=== PATIENT | female | born 1950 | race Caucasian/White ===

== ENCOUNTER 2018-06-22 07:05 | Day surgery (SDC) | payer MEDICARE, OTHER ==
[~2018-06-22] VITALS: Ht 167.6 cm; Wt 73.9 kg
[~2018-06-22 07:05] MED LIST: ACET325T16 PO; ASPI81TA59 PO; CHOL100013 PO; CYCL10TA2 PO; GABA600T PO; OXYC5TAB4 PO; POLY17PO29 PO
[2018-06-22] MEDS ORDERED: SENN-80 PO (07:12)
[2018-06-22] MEDS ORDERED: TRAM50TA PO (07:12)
[2018-06-22] MEDS ORDERED: CYCL10TA2 PO (07:12)
[2018-06-22] MEDS ORDERED: IV RINGERS,LACTATED 1000ML 1,000 ML IV SCH (07:33)
[2018-06-22] MEDS ORDERED: HYDROmorphone 2 MG/ML VIAL IV PRN (07:45)
[2018-06-22] MEDS ORDERED: ONDANSETRON PF 4 MG/2 ML VIAL. IV PRN (07:45)
[2018-06-22] MEDS ORDERED: fentaNYL PF VIAL 100 MCG/2 ML VIAL IV PRN (07:45)
[2018-06-22] MEDS ORDERED: MORPHINE SULFATE 2 MG/ML VIAL. IV PRN (07:45)
[2018-06-22] MEDS ORDERED: PROCHLORPERAZINE 10 MG/2 ML VIAL. IV PRN (07:45)
[2018-06-22] MEDS ORDERED: LIDOCAINE 1% PF 2 ML VIAL. ID PRN (07:45)
[2018-06-22] MEDS ORDERED: DEXAMETHASONE SOD PHOS 20 MG/5 ML VIAL. ONE (08:07)
[2018-06-22] MEDS ORDERED: SEVOFLURANE 61 TO 120 MINUTES. IH ONE (08:07)
[2018-06-22] MEDS ORDERED: DESFLURANE 31 TO 60 MINUTES IH ONE (08:07)
[2018-06-22] MEDS ORDERED: ONDANSETRON PF 4 MG/2 ML VIAL. ONE (08:07)
[2018-06-22] MEDS ORDERED: PROPOFOL 20 ML IV ONE (08:07)
[2018-06-22] MEDS ORDERED: LIDOCAINE 2% PF 5 ML VIAL. ONE (08:07)
[2018-06-22] MEDS ORDERED: fentaNYL PF VIAL 100 MCG/2 ML VIAL ONE ×2 (08:08→11:04)
--- NOTE | 2018-06-22 08:12 | DISCH ---
DISCHARGE INSTRUCTIONS Condition on Discharge Condition on Discharge: Stable Activity After Discharge Activity Instructions for Disc: Activity as tolerated Bathing Instructions: No Tub Bath until see Exercise Instruction after Dis: Exercise per therapy Weight Bearing Status after Di: As tolerated Diet after Discharge Diet after Discharge: Regular Wound Incision Care Wound/Incision Care: Change dressing (May remove dressing in 2 days may then shower no soaking until sutures removed) Contacting the DRElda after DC Call your doctor for: Concerns you may have Follow-Up Follow up with: Nick 1 week RENETTA GONZALEZ MD Jun 22, 2018 08:12
[2018-06-22] MEDS ORDERED: HYDR-3164 PO (08:14)
[2018-06-22] MEDS ORDERED: KETOROLAC 30 MG/ML INJ FOR OR. INJ ONE (10:32)
[2018-06-22] MEDS ORDERED: BUPIVACAINE MPF 0.5% 30 ML VIAL. ONE (10:47)
[2018-06-22] MEDS: fentaNYL PF VIAL 100 MCG/2 ML VIAL IV PRN ×2 (11:05→11:10)
--- NOTE | 2018-06-22 11:10 | PDOC4 ---
Operative Note Operative Note Date of surgery: 06/22/2018 Preoperative diagnosis: Symptomatic hardware status post previous tibial nail fixation Postoperative diagnosis: Same with likely some fat necrosis at the area of the superior screw Operative procedure: Removal locking screws �3 left leg Surgeon: Nick Anesthesia: Gen. LMA Estimated blood loss: 2 mL Complications: None Specimens: Cultures of proximal screw area sent intraoperatively Operative indications: Anna is a 67-year-old female who underwent previous tibial fixation and remains very active the fracture healed without incident however once her swelling went down she appears to have significant prominence of 3 of the 4 tibial nail locking screws. 2 on the distal medial ankle and 1 on the medial tibial crest area. I had gone over with her the fact that the hardware has outlived its usefulness at present and we could remove them if symptomatic. I do not recommend removal of the nail wasn't Symptomatic Hardware at This Time. I Anticipate Minimal Restrictions from Her Afterword in Terms of Activity Other Than the Incision Itself Healing. All Her Questions Were Answered She Wishes to Proceed with Surgical Evaluation and Treatment. Operative Text: Patient Was Identified Procedure Verified Patient Placed in the Supine Position on the Operating Table. After Adequate Amounts of General LMA Anesthesia Were Administered the Left Lower Extremity Was Prepped and Draped in Standard Sterile Fashion and after Timeout Was Performed Patient Procedure Identified and Verified and Incision Was Made over the Previous Insertion Site of the Proximal Medial Locking Screw. Some Cloudy Appearing Fluid Was Obtained and Cultured As I Expect It Was Probably Fat Necrosis Given Any Lack of Redness or Other Communication However in the Affected May Be a Small Pocket of Pus Was Sent for Intraoperative Culture. Screw Was Removed without Incident There Was No Further Drainage from the Bone Other Than Just Slight Expected Bloody Drainage. The 2 Distal Medial Screws Were Similarly Removed and No Fluid Accumulation Was Observed around the Distal Screws Which Were Removed without Incident Thorough Irrigation Was Carried out at All 3 Removal Sites Closure Accomplished with Nylon Suture and a Mattress Fashion Sterile Dressings Were Applied after a Total of 10 ML of Half Percent Plain Marcaine Were Injected around the Skin Incisions Jose Alberto Wrap Was Placed Patient Was Returned to Recovery Room in Stable Condition Having Tolerated Procedure Well RENETTA GONZALEZ MD Jun 22, 2018 11:10
[2018-06-22] MEDS ORDERED: HYDROcodone/APAP 5/325MG 1 TAB TABLET PO ONE (11:15)
[2018-06-22 12:10] VITALS: BP 144/58
== END 2018-06-22 12:10 | disposition home or self-care (01) ==
LOC: SURG 07:05
PROVIDERS: ATTEND Orthopaedic Surgery
DX: T84.84XA Pain due to internal orthopedic prosthetic devices, implants and grafts, initial encounter (principal); F32.9 Major depressive disorder, single episode, unspecified; Z98.890 Other specified postprocedural states; F17.210 Nicotine dependence, cigarettes, uncomplicated; Z72.89 Other problems related to lifestyle; Z79.899 Other long term (current) drug therapy; Z79.82 Long term (current) use of aspirin; G89.18 Other acute postprocedural pain; Y83.1 Surgical operation with implant of artificial internal device as the cause of abnormal reaction of the patient, or of later complication, without mention of misadventure at the time of the procedure; Y92.89 Other specified places as the place of occurrence of the external cause
CPT/HCPCS: 20680; 87071; 87075; A7015; J0690; J1100; J1885; J2001; J2405; J2704; J3010; J3490; J0696

== ENCOUNTER → 2018-08-02 | Outpatient (CLI) | payer MEDICARE ==
[~2018-08-02] MED LIST changes: +HYDR-3164 PO; +HYDR-3165 PO; +SENN-80 PO; +TRAM50TA PO
[2018-08-02 15:17] LABS: BASO # 0.1 x10^3/uL (0.0-0.2); BASO % 1 % (0-3); EOS # 0.2 x10^3/uL (0.0-0.7); EOS % 2 % (0-3); HEMATOCRIT 39.7 % (36.0-47.0); HEMOGLOBIN 13.3 g/dL (12.0-15.5); LYMPH # 3.4 x10^3/uL (1.0-4.8); LYMPH % 36 % (24-48); MEAN CORPUSCULAR HEMOGLOBIN 31 pg (25-35); MEAN CORPUSCULAR HGB CONC 34 g/dL (31-37); MEAN CORPUSCULAR VOLUME 93 fL (79-100); MONO # 1.2 x10^3/uL (0.0-1.1); MONO % 13 % (0-9); NEUT # 4.4 x10^3uL (1.8-7.7); NEUT % 48 % (31-73); PLATELET COUNT 258 x10^3/uL (140-400); RED BLOOD COUNT 4.26 x10^6/uL (3.50-5.40); RED CELL DISTRIBUTION WIDTH 12.8 % (11.5-14.5); WHITE BLOOD COUNT 9.3 x10^3/uL (4.0-11.0)
== END | disposition home or self-care (01) ==
LOC: LAB 14:53
PROVIDERS: ATTEND Orthopaedic Surgery
DX: S82.202D Unspecified fracture of shaft of left tibia, subsequent encounter for closed fracture with routine healing (principal); Z79.899 Other long term (current) drug therapy; X58.XXXD Exposure to other specified factors, subsequent encounter
CPT/HCPCS: 36415; 85025; 85651; 86140

== ENCOUNTER 2018-08-17 07:19 | Inpatient (IN) | payer MEDICARE ==
[~2018-08-17] VITALS: Ht 167.6 cm; Wt 69.2 kg
[~2018-08-17 07:19] MED LIST changes: -HYDR-3165 PO; +IV RINGERS,LACTATED 1000ML 1,000 ML IV SCH; +LIDOCAINE 1% PF 2 ML VIAL. ID PRN; +ONDANSETRON PF 4 MG/2 ML VIAL. IV PRN; +PROCHLORPERAZINE 10 MG/2 ML VIAL. IV PRN; +fentaNYL PF VIAL 100 MCG/2 ML VIAL IV PRN
[2018-08-17] MEDS ORDERED: DEXAMETHASONE SOD PHOS 20 MG/5 ML VIAL. ONE (08:49)
[2018-08-17] MEDS ORDERED: LIDOCAINE 2% PF 5 ML VIAL. ONE (08:49)
[2018-08-17] MEDS ORDERED: PROPOFOL 20 ML IV ONE (08:49)
[2018-08-17] MEDS ORDERED: ONDANSETRON PF 4 MG/2 ML VIAL. ONE (08:49)
[2018-08-17] MEDS ORDERED: MIDAZOLAM HCL/PF 2 MG/2 ML VIAL. ONE (08:50)
[2018-08-17] MEDS ORDERED: fentaNYL PF VIAL 100 MCG/2 ML VIAL ONE ×2 (08:51→10:53)
[2018-08-17] MEDS ORDERED: ePHEDrine PF IN SALINE 50 MG/10 ML SYRINGE. IV ONE (09:42)
[2018-08-17] MEDS ORDERED: SEVOFLURANE 31 TO 60 MINUTES. IH ONE (10:05)
[2018-08-17] MEDS: fentaNYL PF VIAL 100 MCG/2 ML VIAL IV PRN ×4 (10:55→11:30)
[2018-08-17] MEDS ORDERED: HYDR-3165 PO (10:57)
--- NOTE | 2018-08-17 10:58 | DISCH ---
DISCHARGE INSTRUCTIONS Condition on Discharge Condition on Discharge: Stable Activity After Discharge Activity Instructions for Disc: Activity as tolerated Bathing Instructions: Shower-keep dressing dry Weight Bearing Status after Di: As tolerated Diet after Discharge Diet after Discharge: Regular Wound Incision Care Wound/Incision Care: Change dressing (May remove dressing in 3 days may then shower no soaking until sutures removed at follow-up visit) Contacting the after DC Call your doctor for: Concerns you may have Follow-Up Follow up with: Dr. Romero 2 weeks RENETTA ROMERO MD Aug 17, 2018 10:58
[2018-08-17] MEDS: MORPHINE SULFATE 2 MG/ML VIAL. IV PRN ×4 (11:05→13:59)
[2018-08-17] MEDS ORDERED: HYDROcodone/APAP 7.5/325MG 1 TAB TABLET PO ONE (11:15)
[2018-08-17] MEDS ORDERED: HYDROmorphone 2 MG/ML VIAL ONE (11:43)
[2018-08-17] MEDS ORDERED: MORPHINE SULFATE 2 MG/ML VIAL. ONE (11:43)
[2018-08-17] MEDS: HYDROmorphone 2 MG/ML VIAL IV PRN ×4 (11:46→13:04)
--- NOTE | 2018-08-17 12:52 | RAD ---
Left tibia and fibula, 2 views, 08/17/2018: HISTORY: Postop bleeding Comparison is made to a study from 09/01/2016. The intramedullary shira and associated screws have been removed.There is deformity of the proximal fibular shaft compatible with an old healed fracture. There is a chronic bony defect along the medial margin of the distal tibia containing a bony fragment which appears to be incompletely healed with sclerotic margins. No new fracture or destructive bony lesion is seen. IMPRESSION: 1. Interval removal of tibial fixation hardware since 09/01/2016 and 05/24/2018. 2. Old distal tibial and proximal fibular fractures. Electronically signed by: Salinas Burns MD (08/17/2018 12:49 PM) [facility]
[2018-08-17] MEDS ORDERED: MORPHINE SULFATE 2 MG/ML VIAL. IV PRN (14:00)
[2018-08-17] MEDS ORDERED: ONDANSETRON PF 4 MG/2 ML VIAL. IV PRN (14:00)
[2018-08-17] MEDS ORDERED: DEXTROSE 50% 25 GM / 50ML DISP.SYRIN. IV PRN (14:00)
[2018-08-17] MEDS ORDERED: fentaNYL PF VIAL 100 MCG/2 ML VIAL IV PRN (14:00)
[2018-08-17] MEDS ORDERED: POLYETHYLENE GLYCOL 3350 17 GM PACKET. PO PRN (14:00)
[2018-08-17 15:00] VITALS: BP 143/63
[2018-08-17] MEDS: SENNOSIDES/DOCUSATE 8.6/50MG TABLET. PO SCH (15:11)
[2018-08-17] MEDS: ceFAZolin SODIUM 1 GM in IV DEXTROSE 5% 50 ML IV SCH ×2 (15:13→20:29)
[2018-08-17] MEDS: MORPHINE SULFATE 4 MG/ML VIAL. IV PRN ×3 (15:19→20:30)
--- NOTE | 2018-08-17 16:22 | PDOC4 ---
Operative Note Operative Note Date of surgery: 08/17/2018 Preoperative diagnosis: Retained hardware left tibia with persistent drainage following distal locking screw removal, suspected occult infection Postoperative diagnosis: Same Operative procedure: Removal proximal locking screw and tibial nail with irrigation debridement and cultures Surgeon: Nick Anesthesia: Gen. Estimated blood loss: 75 mL Complications: None Cultures: Swabs 2 were taken down the medullary canal and at the rock small locking screw location and tissue samples taken from the locking screws in the tibial nail and sent for intraoperative Gram stain aerobic anaerobic and acid- fast and fungal cultures Operative indications: Anna is a very active 67-year-old female who had undergone previous fixation of a tibial shaft fracture with an intramedullary nail. The fracture appeared to heal without incident however she began with activity to have some pain particularly over the distal locking screws and prominence of the hardware. She underwent removal of a total of 3 prominent locking screws with the tibial nail retained but continued to have some discomfort in actually some persistent drainage from the distal locking screw incision sites. Blood work was initially obtained but showed very little increase in her inflammatory markers but she continued to have some persistent serous drainage. I discussed at length with her the treatment options and was concerned with the possibility of low-grade occult infection that could potentially be harbored by the tibial nail and given that it is already outlived its usefulness in terms of the stabilization of the healing fracture and could potentially serve as a hiding place for bacteria next to the nail that may be causing her symptoms had discussed the possibility of removal versus longer term antibiotics which could potentially improve her situation but would make it difficult to obtain a diagnosis intraoperatively with cultures if that were later chosen. She wishes to proceed with surgical removal of the nail given the alternatives all her questions were answered. Operative text: Patient was identified procedure verified patient placed in the supine position on the operating table. After adequate amounts of general anesthesia were administered the left lower coming was prepped and draped in standard sterile fashion. After timeout was performed patient procedure identified and verified her thigh tourniquet was inflated to 250 mm mercury and an incision was carried out over the medial aspect of the patellar tendon. A guidewire was placed to localize the threaded insertion portion of the tibial nail and an entry reamer used to open up the area to allow placement of an extraction device which was threaded into the proximal portion of the nail. The lateral proximal locking screw was removed and the contents of the screw threads were cultured and a aerobic and anaerobic swab. The nail was removed with little difficulty and tissue samples were sent for culture intraoperatively in the locking screw holes and an additional swab was sent after swabbing intramedullary contents. Thorough irrigation was then carried out with a total of 3 L of pulse lavage normal saline solution and flushing was carried out anterograde and retrograde after brushing the canal with a sterile brush used to prepare for cemented arthroplasty. Some bleeding was experienced after this procedure but was thought necessary to achieve adequate intramedullary debridement. Additional thorough irrigation carried out normal saline solution pulse lavage closure accomplished with buried 2-0 PDS suture skin closure with 3-0 nylon in a vertical mattress fashion sterile dressings and an Jose Alberto wrap were applied toes were noted be warm pink find deflation of tourniquet patient was returned recovery room having tolerated the procedure well and was in stable condition. Postoperatively she experienced some bleeding particularly from the small locking screw incision site and the area was redressed but due to her bleeding and significant amounts of difficulty controlling postoperative pain she was admitted postoperatively and infectious disease consultation obtained RENETTA GONZALEZ MD Aug 17, 2018 16:22
[2018-08-17 19:00] VITALS: BP 138/66
[2018-08-17 23:00] VITALS: BP 152/66
[2018-08-18] MEDS: MORPHINE SULFATE 4 MG/ML VIAL. IV PRN ×3 (01:07→17:10)
[2018-08-18] MEDS: ceFAZolin SODIUM 1 GM in IV DEXTROSE 5% 50 ML IV SCH (02:15)
[2018-08-18] MEDS: oxyCODONE IR 5 MG TABLET PO PRN ×2 (02:20→08:27)
[2018-08-18 03:00] VITALS: BP 143/64
[2018-08-18] MEDS ORDERED: MAGNESIUM HYDROXIDE 2,400 MG/30 ML ORAL.SUSP. PO PRN (06:00)
[2018-08-18] MEDS: HYDROcodone/APAP 7.5/325MG 1 TAB TABLET PO PRN ×4 (06:11→23:16)
[2018-08-18 07:00] VITALS: BP 106/60
[2018-08-18] MEDS: SENNOSIDES/DOCUSATE 8.6/50MG TABLET. PO SCH (08:24)
[2018-08-18] MEDS: PIPERACILLIN/TAZOBACTAM 3.375 GM in IV NORMAL SALINE 50ML 50 ML IV SCH ×4 (08:27→23:15)
[2018-08-18 08:53] LABS: BASO # 0.1 x10^3/uL (0.0-0.2); BASO % 0 % (0-3); EOS % 0 % (0-3); HEMATOCRIT 37.2 % (36.0-47.0); HEMOGLOBIN 12.4 g/dL (12.0-15.5); LYMPH % 20 % (24-48); MEAN CORPUSCULAR HEMOGLOBIN 31 pg (25-35); MEAN CORPUSCULAR HGB CONC 33 g/dL (31-37); MEAN CORPUSCULAR VOLUME 94 fL (79-100); MONO # 1.6 x10^3/uL (0.0-1.1); MONO % 11 % (0-9); NEUT % 68 % (31-73); PLATELET COUNT 243 x10^3/uL (140-400); RED BLOOD COUNT 3.95 x10^6/uL (3.50-5.40); RED CELL DISTRIBUTION WIDTH 12.9 % (11.5-14.5); WHITE BLOOD COUNT 14.7 x10^3/uL (4.0-11.0)
[2018-08-18 09:13] LABS: ALBUMIN 3.6 g/dL (3.4-5.0); CALCIUM 8.6 mg/dL (8.5-10.1); CREATININE 0.8 mg/dL (0.6-1.0); TOTAL BILIRUBIN 0.4 mg/dL (0.2-1.0); TOTAL PROTEIN 7.3 g/dL (6.4-8.2)
[2018-08-18 11:00] VITALS: BP 126/78
--- NOTE | 2018-08-18 13:04 | PDOC ---
Infectious Disease Note Vital Sign Vital Signs Vital Signs Date Time Temp Pulse Resp B/P (MAP) Pulse Ox O2 Delivery O2 Flow Rate FiO2 08/18/18 12:11 Room Air 08/18/18 07:00 98.6 86 18 106/60 (75) 96 98.6 08/18/18 01:37 10.0 Labs Lab Laboratory Tests Test 08/18/18 08:25 08/18/18 08:40 White Blood Count 14.7 x10^3/uL (4.0-11.0) Red Blood Count 3.95 x10^6/uL (3.50-5.40) Hemoglobin 12.4 g/dL (12.0-15.5) Hematocrit 37.2 % (36.0-47.0) Mean Corpuscular Volume 94 fL (79-100) Mean Corpuscular Hemoglobin 31 pg (25-35) Mean Corpuscular Hemoglobin Concent 33 g/dL (31-37) Red Cell Distribution Width 12.9 % (11.5-14.5) Platelet Count 243 x10^3/uL (140-400) Neutrophils (%) (Auto) 68 % (31-73) Lymphocytes (%) (Auto) 20 % (24-48) Monocytes (%) (Auto) 11 % (0-9) Eosinophils (%) (Auto) 0 % (0-3) Basophils (%) (Auto) 0 % (0-3) Neutrophils # (Auto) 10.0 x10^3uL (1.8-7.7) Lymphocytes # (Auto) 3.0 x10^3/uL (1.0-4.8) Monocytes # (Auto) 1.6 x10^3/uL (0.0-1.1) Eosinophils # (Auto) 0.0 x10^3/uL (0.0-0.7) Basophils # (Auto) 0.1 x10^3/uL (0.0-0.2) Sodium Level 138 mmol/L (136-145) Potassium Level 4.0 mmol/L (3.5-5.1) Chloride Level 100 mmol/L (98-107) Carbon Dioxide Level 30 mmol/L (21-32) Anion Gap 8 (6-14) Blood Urea Nitrogen 9 mg/dL (7-20) Creatinine 0.8 mg/dL (0.6-1.0) Estimated GFR (Cockcroft-Gault) 72.0 BUN/Creatinine Ratio 11 (6-20) Glucose Level 131 mg/dL (70-99) Calcium Level 8.6 mg/dL (8.5-10.1) Total Bilirubin 0.4 mg/dL (0.2-1.0) Aspartate Amino Transf (AST/SGOT) 20 U/L (15-37) Alanine Aminotransferase (ALT/SGPT) 27 U/L (14-59) Alkaline Phosphatase 99 U/L (46-116) Total Protein 7.3 g/dL (6.4-8.2) Albumin 3.6 g/dL (3.4-5.0) Albumin/Globulin Ratio 1.0 (1.0-1.7) Erythrocyte Sedimentation Rate 14 (0-25) Objective Assessment H/O ORIF LLE fracture 05/11/16 ? Infected Tibial nail s/p removal 08/17. Previous screws removed 06/22/2018 Leukocytosis - s/p Dexamethasone 08/17 ? Urinary retention Plan Plan of Care Add Vanc and zosyn this am Obtained CBC/CMP/Sed rate this am F/u cults and labs D/w nursing re bladder scan and potential need for saleh Thank you # [phone] OLAF TORREZ MD Aug 18, 2018 13:04
--- NOTE | 2018-08-18 13:54 | NUR ---
SW following for discharge planning. Discussed with RN, pt is from home with . Pt declined PT today, pt is not discharging today due to having a saleh placed. SW will continue to follow.
[2018-08-18] MEDS ORDERED: VANCOMYCIN 1.75 GM in IV NORMAL SALINE 500ML BAG 500 ML IV ONE (14:00)
[2018-08-18 15:00] VITALS: BP 123/69
[2018-08-18] MEDS: VANCOMYCIN PER PHARMACY MC PRN (15:36)
--- NOTE | 2018-08-18 15:37 | NUR ---
Pharmacy Vancomycin Dosing Note S:Consulted to monitor and dose vancomycin started 08/18/18. O:JAIME CRUZ is a 67 year old F with INFECTED TIBIAL NAIL . Height: 5 feet, 6 inches Weight: 73.680095 kg [place] Body Weight: 59.30 Adjusted Body Weight: 64.98 Dosing Weight: Actual Other Antibiotics: ZOSYN LABS: Last BUN: 9 Last Creatinine: 0.8 Creatinine Clearance: 57 mL/min Last WBC: 14.7 Last Procalcitonin: Tmax (past 24 hours): 98.6 Microbiology: 08/17 LEG: PENDING I/O: VOIDS Drug Levels: Last level: on at Last dose given 08/18/18 at 1414 Vancomycin Dosing: Loading Dose: 1750 mg x1 Dosing Weight: Actual Target Trough: 15-20 A: Based on: Body weight and renal function P: 1. After loading dose, start Vancomycin 1000 mg IV q12h 2. Follow up Trough level on 08/20/18 at 0130 3. Pharmacy will continue to monitor, follow and adjust therapy as needed. KAELYN FLORENTINO RPH, 08/18/18 [id number]
[2018-08-18] MEDS ORDERED: BISACODYL 10 MG SUPP.RECT. PR PRN (16:00)
--- NOTE | 2018-08-18 17:57 | PDOC ---
PROGRESS NOTES Subjective Subjective Problems overnight: Operative leg is still very painful both to bear weight or to dorsiflex the ankle and to a lesser extent to move her knee Objective Vital Signs Vital Signs Date Time Temp Pulse Resp B/P (MAP) Pulse Ox O2 Delivery O2 Flow Rate FiO2 08/18/18 17:10 16 Room Air 08/18/18 15:00 98.0 78 123/69 (87) 99 98.0 08/18/18 01:37 10.0 Physical Exam On exam her dressings are clean dry intact she can mildly plantar and dorsiflex the foot but not to extremes sensation is intact she has minimal swelling Labs Laboratory Tests Test 08/18/18 08:25 08/18/18 08:40 White Blood Count 14.7 x10^3/uL (4.0-11.0) Red Blood Count 3.95 x10^6/uL (3.50-5.40) Hemoglobin 12.4 g/dL (12.0-15.5) Hematocrit 37.2 % (36.0-47.0) Mean Corpuscular Volume 94 fL (79-100) Mean Corpuscular Hemoglobin 31 pg (25-35) Mean Corpuscular Hemoglobin Concent 33 g/dL (31-37) Red Cell Distribution Width 12.9 % (11.5-14.5) Platelet Count 243 x10^3/uL (140-400) Neutrophils (%) (Auto) 68 % (31-73) Lymphocytes (%) (Auto) 20 % (24-48) Monocytes (%) (Auto) 11 % (0-9) Eosinophils (%) (Auto) 0 % (0-3) Basophils (%) (Auto) 0 % (0-3) Neutrophils # (Auto) 10.0 x10^3uL (1.8-7.7) Lymphocytes # (Auto) 3.0 x10^3/uL (1.0-4.8) Monocytes # (Auto) 1.6 x10^3/uL (0.0-1.1) Eosinophils # (Auto) 0.0 x10^3/uL (0.0-0.7) Basophils # (Auto) 0.1 x10^3/uL (0.0-0.2) Sodium Level 138 mmol/L (136-145) Potassium Level 4.0 mmol/L (3.5-5.1) Chloride Level 100 mmol/L (98-107) Carbon Dioxide Level 30 mmol/L (21-32) Anion Gap 8 (6-14) Blood Urea Nitrogen 9 mg/dL (7-20) Creatinine 0.8 mg/dL (0.6-1.0) Estimated GFR (Cockcroft-Gault) 72.0 BUN/Creatinine Ratio 11 (6-20) Glucose Level 131 mg/dL (70-99) Calcium Level 8.6 mg/dL (8.5-10.1) Total Bilirubin 0.4 mg/dL (0.2-1.0) Aspartate Amino Transf (AST/SGOT) 20 U/L (15-37) Alanine Aminotransferase (ALT/SGPT) 27 U/L (14-59) Alkaline Phosphatase 99 U/L (46-116) Total Protein 7.3 g/dL (6.4-8.2) Albumin 3.6 g/dL (3.4-5.0) Albumin/Globulin Ratio 1.0 (1.0-1.7) Erythrocyte Sedimentation Rate 14 (0-25) Laboratory Tests Test 08/18/18 08:25 08/18/18 08:40 White Blood Count 14.7 x10^3/uL (4.0-11.0) Red Blood Count 3.95 x10^6/uL (3.50-5.40) Hemoglobin 12.4 g/dL (12.0-15.5) Hematocrit 37.2 % (36.0-47.0) Mean Corpuscular Volume 94 fL (79-100) Mean Corpuscular Hemoglobin 31 pg (25-35) Mean Corpuscular Hemoglobin Concent 33 g/dL (31-37) Red Cell Distribution Width 12.9 % (11.5-14.5) Platelet Count 243 x10^3/uL (140-400) Neutrophils (%) (Auto) 68 % (31-73) Lymphocytes (%) (Auto) 20 % (24-48) Monocytes (%) (Auto) 11 % (0-9) Eosinophils (%) (Auto) 0 % (0-3) Basophils (%) (Auto) 0 % (0-3) Neutrophils # (Auto) 10.0 x10^3uL (1.8-7.7) Lymphocytes # (Auto) 3.0 x10^3/uL (1.0-4.8) Monocytes # (Auto) 1.6 x10^3/uL (0.0-1.1) Eosinophils # (Auto) 0.0 x10^3/uL (0.0-0.7) Basophils # (Auto) 0.1 x10^3/uL (0.0-0.2) Sodium Level 138 mmol/L (136-145) Potassium Level 4.0 mmol/L (3.5-5.1) Chloride Level 100 mmol/L (98-107) Carbon Dioxide Level 30 mmol/L (21-32) Anion Gap 8 (6-14) Blood Urea Nitrogen 9 mg/dL (7-20) Creatinine 0.8 mg/dL (0.6-1.0) Estimated GFR (Cockcroft-Gault) 72.0 BUN/Creatinine Ratio 11 (6-20) Glucose Level 131 mg/dL (70-99) Calcium Level 8.6 mg/dL (8.5-10.1) Total Bilirubin 0.4 mg/dL (0.2-1.0) Aspartate Amino Transf (AST/SGOT) 20 U/L (15-37) Alanine Aminotransferase (ALT/SGPT) 27 U/L (14-59) Alkaline Phosphatase 99 U/L (46-116) Total Protein 7.3 g/dL (6.4-8.2) Albumin 3.6 g/dL (3.4-5.0) Albumin/Globulin Ratio 1.0 (1.0-1.7) Erythrocyte Sedimentation Rate 14 (0-25) Assessment Assessment POD# [1], S/P [irrigation debridement and removal tibial nail and locking screw] Plan Plan of Care Intraoperative cultures are pending, appreciate infectious disease consult and antibiotic management Mobilize as tolerated and pain control RENETTA GONZALEZ MD Aug 18, 2018 17:57
[2018-08-18 19:00] VITALS: BP 135/66
[2018-08-18] MEDS ORDERED: ZOLPIDEM 5 MG TABLET. PO PRN (20:45)
[2018-08-18] MEDS: LACTOBACILLUS RHAMNOSUS GG 1 CAPSULE. PO SCH (20:57)
[2018-08-18 23:00] VITALS: BP 105/58
[2018-08-19] MEDS: MORPHINE SULFATE 4 MG/ML VIAL. IV PRN ×4 (00:36→13:11)
[2018-08-19] MEDS: VANCOMYCIN 1 GM in IV NORMAL SALINE 250ML 250 ML IV SCH ×2 (02:02→14:43)
[2018-08-19] MEDS: HYDROcodone/APAP 7.5/325MG 1 TAB TABLET PO PRN ×3 (02:12→14:45)
[2018-08-19 03:00] VITALS: BP 133/75
--- NOTE | 2018-08-19 03:19 | CONS ---
DATE OF CONSULTATION: 08/18/2018 LOCATIONS: Room 416. REQUESTING PHYSICIAN: Jose Romero MD REASON FOR CONSULTATION: Questionable infected left lower extremity IM nail. HISTORY OF PRESENT ILLNESS: The patient is a pleasant 67-year-old female who on 2015 was carrying some [employer] decorations and wearing some awkward slippers that caused her to fall. She subsequently suffered a left lower extremity fracture and had to have an IM nail placed. Last December 2017, she began to have pain in her left lower extremity. She was trying to continue to recover and stay strong. She states she is spending up to 2 hours on the treadmill amongst other exercises. The pain persisted and on 06/22/2018, she underwent removal of the locking screws, as they had begun to back out from the anchoring. Cultures at that time were negative. She was sent home with antibiotic, which she states she took for approximately 2 weeks, but she cannot remember the name of the antibiotic currently. She took for 2 weeks of antibiotics. Postoperatively, the wound draining kind of clear fluid. Despite the oral antibiotics, the wound continued to drain. About 2 weeks or so ago, the clear drainage became more yellow and she continued to have increasing pain. She denied any fevers, chills, sweats. No headaches, no sore throat, cough. No nausea, vomiting, diarrhea. No dysuria, frequency, urgency, although currently she is having problems with passing her urine. Since yesterday, she has not passed very much. She still has some pain postoperatively in left lower extremity, but otherwise better. She has received cefazolin perioperatively. I was consulted yesterday and was told she is on cefazolin. This morning, I instituted vancomycin, as well as Zosyn and ordered some laboratory values. PAST MEDICAL HISTORY: Positive for the above-mentioned ankle fracture. Chest has a history of chronic pain. PAST SURGICAL HISTORY: Positive for the above-mentioned surgeries, as well as cervical spine surgery. REVIEW OF SYSTEMS: Otherwise negative. ALLERGIES: No known drug allergies. SOCIAL HISTORY: She has history of smoking, history of previous alcohol and marijuana use. She is retired. CURRENT MEDICATIONS: Include cefazolin, changed to Zosyn and p.r.n. medications. PHYSICAL EXAMINATION: VITAL SIGNS: She is afebrile, temperature 98.6, pulse 86, respirations 18, blood pressure 106/60, satting 96% on room air. CONSTITUTIONAL: She is a very pleasant lady, cooperative. She is in no acute distress. She is sitting upright in bed. HEENT: Pupils are equal and reactive. She has normal conjunctivae. Oral cavity: Pharynx is clear. NECK: Supple. Good range of motion. LUNGS: Clear to auscultation bilaterally. HEART: S1, S2. ABDOMEN: Soft, decreased bowel sounds, but present. She has fullness in her suprapubic area. EXTREMITIES: No clubbing, cyanosis. Her left lower extremity is heavily bandaged. SKIN: Warm to touch without signs of rash. NEUROLOGIC: She is nonfocal. PSYCHIATRIC: Affect is pleasant. LABORATORY DATA: Today, white count 14.7, hemoglobin 12.4, platelets of 243 with 68 segs, 20 lymphs. Sedimentation rate was 14. Previous sed rate on 02 of August was 27, creatinine 0.8, glucose of 131. Normal liver function study tests. IMAGING DATA: X-rays showed interval removal of the tibial fixation hardware, old distal to the proximal fibular fractures. IMPRESSION: 1. History of open reduction and internal fixation of left lower extremity fracture, 05/11/2016. 2. Questionable infected tibial nail, status post removal of 17 of August. Previous screws were removed on 22 of June 3. Leukocytosis, status post dexamethasone on the 17 of August. 4. Questionable urinary retention. RECOMMENDATIONS: We will add vancomycin and Zosyn. Again, I obtained a CBC, CMP and sed rate this morning. We will follow up labs and cultures. Did discuss with nursing a need for bladder scan, concern for urinary retention and may need a Hutchison catheter. Thank you for allowing me to participate in this patient's care. Should you have any questions, please do not hesitate to contact me. OLAF TORREZ MD DR: CHETNA/christofer JOB#: [id number] / [id number]
[2018-08-19 06:01] LABS: CALCIUM 8.7 mg/dL (8.5-10.1); CREATININE 0.8 mg/dL (0.6-1.0); POTASSIUM 3.8 mmol/L (3.5-5.1)
[2018-08-19] MEDS: PIPERACILLIN/TAZOBACTAM 3.375 GM in IV NORMAL SALINE 50ML 50 ML IV SCH ×3 (06:06→18:14)
[2018-08-19 07:00] VITALS: BP 111/52
[2018-08-19] MEDS: LACTOBACILLUS RHAMNOSUS GG 1 CAPSULE. PO SCH ×2 (09:29→20:01)
[2018-08-19] MEDS: SENNOSIDES/DOCUSATE 8.6/50MG TABLET. PO SCH (09:30)
[2018-08-19 11:00] VITALS: BP 135/61
--- NOTE | 2018-08-19 11:06 | PDOC ---
Infectious Disease Note Subjective Subjective Has pain in leg and is constipated Saleh helped No F/C/S/n/V/D/SOA/Rash ROS ROS o/w neg Vital Sign Vital Signs Vital Signs Date Time Temp Pulse Resp B/P (MAP) Pulse Ox O2 Delivery O2 Flow Rate FiO2 08/19/18 09:31 16 Room Air 08/19/18 07:00 98.1 75 111/52 (71) 99 98.1 Physical Exam PHYSICAL EXAM CONSTITUTIONAL: She is a very pleasant lady, cooperative. She is in no acute distress. She is sitting upright in bed. HEENT: Pupils are equal and reactive. She has normal conjunctivae. Oral cavity: Pharynx is clear. NECK: Supple. Good range of motion. LUNGS: Clear to auscultation bilaterally. HEART: S1, S2. ABDOMEN: Soft, decreased bowel sounds, but present. : saleh in place EXTREMITIES: No clubbing, cyanosis. Her left lower extremity is heavily bandaged. SKIN: Warm to touch without signs of rash. NEUROLOGIC: She is nonfocal. PSYCHIATRIC: Affect is pleasant. Labs Lab Laboratory Tests Test 08/19/18 04:55 Sodium Level 141 mmol/L (136-145) Potassium Level 3.8 mmol/L (3.5-5.1) Chloride Level 103 mmol/L (98-107) Carbon Dioxide Level 29 mmol/L (21-32) Anion Gap 9 (6-14) Blood Urea Nitrogen 12 mg/dL (7-20) Creatinine 0.8 mg/dL (0.6-1.0) Estimated GFR (Cockcroft-Gault) 72.0 Glucose Level 97 mg/dL (70-99) Calcium Level 8.7 mg/dL (8.5-10.1) Micro Microbiology 08/17/18 Anaerobic/Aerobic Culture, Resulted Pending 08/17/18 Anaerobic Culture Result 1 (SULEMA), Resulted Pending 08/17/18 Aerobic Culture, Resulted Pending 08/17/18 Aerobic Culture Result 1 (SULEMA), Resulted Pending 08/17/18 Gram Stain - Final, Resulted 08/17/18 Gram Stain Result 1 (SULEMA) - Final, Resulted 08/17/18 Gram Stain Result 2 (SULEMA) - Final, Resulted Objective Assessment H/O ORIF LLE fracture 05/11/16 ? Infected Tibial nail s/p removal 08/17. Previous screws removed 06/22/2018 cults so far neg Leukocytosis - s/p Dexamethasone 08/17 Urinary retention s/p saleh Constipation Plan Plan of Care Cont Vanc and zosyn F/u cults and labs D/c saleh in next day or so D/w OLAF TORREZ MD Aug 19, 2018 11:06
--- NOTE | 2018-08-19 11:09 | NUR ---
SW following. Discussed with RN, cultures still pending. Possibility of needing IV abx at discharge. Pt is declining to participate in physical therapy. SW discussed this with RN, RN has great rapport with pt and is going to discuss with pt. SW will continue to follow.
[2018-08-19] MEDS ORDERED: ZOLPIDEM 5 MG TABLET. PO PRN (13:00)
[2018-08-19] MEDS ORDERED: diphenhydrAMINE HCL 25 MG CAPSULE PO PRN (13:00)
[2018-08-19] MEDS: KETOROLAC 30 MG/ML VIAL. IV PRN (13:11)
[2018-08-19] MEDS: CYCLOBENZAPRINE 10 MG TABLET. PO PRN ×2 (13:11→21:22)
[2018-08-19] MEDS: VANCOMYCIN PER PHARMACY MC PRN (13:38)
[2018-08-19 15:00] VITALS: BP 158/66
[2018-08-19 19:00] VITALS: BP 114/60
[2018-08-19] MEDS: oxyCODONE IR 5 MG TABLET PO PRN (20:02)
[2018-08-19 23:00] VITALS: BP 125/64
[2018-08-20] MEDS: PIPERACILLIN/TAZOBACTAM 3.375 GM in IV NORMAL SALINE 50ML 50 ML IV SCH ×2 (00:02→05:41)
[2018-08-20 02:14] LABS: VANC TR 16.2 mcg/mL (10.0-20.0)
[2018-08-20] MEDS: VANCOMYCIN 1 GM in IV NORMAL SALINE 250ML 250 ML IV SCH (02:37)
[2018-08-20 03:00] VITALS: BP 138/71
[2018-08-20] MEDS: VANCOMYCIN PER PHARMACY MC PRN (03:33)
--- NOTE | 2018-08-20 03:34 | NUR ---
Pharmacy Vancomycin Dosing Note S: Consulted to monitor and dose vancomycin started 08/18/18. O: JAIME CRUZ is a 67 year old F with , INFECTED TIBIAL NAIL . Other Antibiotics: ZOSYN LABS: Last BUN: 12 Last Creatinine: 0.8 Creatinine Clearance: 56 mL/min Last WBC: 14.7 Last Procalcitonin: Not PNA Tmax (past 24 hours): 98.6 Microbiology: 08/17 LEG: PENDING (08/19) wound culture so far no organism seen I/O: 800/2700 Drug Levels: Last Trough level: 16.2 on 08/20/18 at 0130 Last dose given 08/19/18 at 1443 Vancomycin Dosing: Dosing Weight: Actual Target Trough: 15-20 A: Based on: Trough, Actual Wt and CrCl P: 1. 08/20/18 Continue Vancomycin 1000 mg IV q12h 2. Follow up Trough level in 5 to 7 days as needed 3. Pharmacy will continue to monitor, follow and adjust therapy as needed. MARGI JENSEN RPH, 08/20/18 [id number] Signed: 08/20/18 at 0335 by MARGI JENSEN RPH PHA
[2018-08-20 07:00] VITALS: BP 125/60
--- NOTE | 2018-08-20 07:25 | NUR ---
Hutchison catheter removed at this time, pt tolerated well, will continue to monitor.
--- NOTE | 2018-08-20 07:29 | PDOC ---
PROGRESS NOTES Subjective Subjective Problems overnight: Reports pain much decreased and now tolerable following Flexeril and Toradol, getting up and around better Objective Vital Signs Vital Signs Date Time Temp Pulse Resp B/P (MAP) Pulse Ox O2 Delivery O2 Flow Rate FiO2 08/20/18 03:00 98.6 89 16 138/71 (93) 96 Room Air 98.6 08/18/18 01:37 10.0 Physical Exam Dressings clean dry intact good knee and ankle range of motion distal neurovascular status intact Labs Laboratory Tests Test 08/18/18 08:25 08/18/18 08:40 08/19/18 04:55 08/20/18 01:30 White Blood Count 14.7 x10^3/uL (4.0-11.0) Red Blood Count 3.95 x10^6/uL (3.50-5.40) Hemoglobin 12.4 g/dL (12.0-15.5) Hematocrit 37.2 % (36.0-47.0) Mean Corpuscular Volume 94 fL (79-100) Mean Corpuscular Hemoglobin 31 pg (25-35) Mean Corpuscular Hemoglobin Concent 33 g/dL (31-37) Red Cell Distribution Width 12.9 % (11.5-14.5) Platelet Count 243 x10^3/uL (140-400) Neutrophils (%) (Auto) 68 % (31-73) Lymphocytes (%) (Auto) 20 % (24-48) Monocytes (%) (Auto) 11 % (0-9) Eosinophils (%) (Auto) 0 % (0-3) Basophils (%) (Auto) 0 % (0-3) Neutrophils # (Auto) 10.0 x10^3uL (1.8-7.7) Lymphocytes # (Auto) 3.0 x10^3/uL (1.0-4.8) Monocytes # (Auto) 1.6 x10^3/uL (0.0-1.1) Eosinophils # (Auto) 0.0 x10^3/uL (0.0-0.7) Basophils # (Auto) 0.1 x10^3/uL (0.0-0.2) Sodium Level 138 mmol/L (136-145) 141 mmol/L (136-145) Potassium Level 4.0 mmol/L (3.5-5.1) 3.8 mmol/L (3.5-5.1) Chloride Level 100 mmol/L (98-107) 103 mmol/L (98-107) Carbon Dioxide Level 30 mmol/L (21-32) 29 mmol/L (21-32) Anion Gap 8 (6-14) 9 (6-14) Blood Urea Nitrogen 9 mg/dL (7-20) 12 mg/dL (7-20) Creatinine 0.8 mg/dL (0.6-1.0) 0.8 mg/dL (0.6-1.0) Estimated GFR (Cockcroft-Gault) 72.0 72.0 BUN/Creatinine Ratio 11 (6-20) Glucose Level 131 mg/dL (70-99) 97 mg/dL (70-99) Calcium Level 8.6 mg/dL (8.5-10.1) 8.7 mg/dL (8.5-10.1) Total Bilirubin 0.4 mg/dL (0.2-1.0) Aspartate Amino Transf (AST/SGOT) 20 U/L (15-37) Alanine Aminotransferase (ALT/SGPT) 27 U/L (14-59) Alkaline Phosphatase 99 U/L (46-116) Total Protein 7.3 g/dL (6.4-8.2) Albumin 3.6 g/dL (3.4-5.0) Albumin/Globulin Ratio 1.0 (1.0-1.7) Erythrocyte Sedimentation Rate 14 (0-25) Vancomycin Level Trough 16.2 mcg/mL (10.0-20.0) Vancomycin Last Dose Date 040 Vancomycin Last Dose Time 1400 Laboratory Tests Test 08/20/18 01:30 Vancomycin Level Trough 16.2 mcg/mL (10.0-20.0) Vancomycin Last Dose Date 0404 Vancomycin Last Dose Time 1400 Assessment Assessment POD# [], S/P [removal tibial nail] Plan Plan of Care Intraoperative cultures still pending, discussed possible antibiotic coverage regimen with Dr. Fernandez Plan home today with antibiotics Follow-up approximately 10 days RENETTA GONZALEZ MD Aug 20, 2018 07:29
[2018-08-20] MEDS: KETOROLAC 30 MG/ML VIAL. IV PRN ×2 (08:45→14:46)
[2018-08-20] MEDS: SENNOSIDES/DOCUSATE 8.6/50MG TABLET. PO SCH (08:45)
[2018-08-20] MEDS: CYCLOBENZAPRINE 10 MG TABLET. PO PRN ×2 (08:45→14:46)
[2018-08-20] MEDS: LACTOBACILLUS RHAMNOSUS GG 1 CAPSULE. PO SCH (08:45)
[2018-08-20] MEDS ORDERED: LIDOCAINE WITH 8.4% SOD BICARB 3 ML DISP.SYRIN. ONE (09:28)
[2018-08-20] MEDS: oxyCODONE IR 5 MG TABLET PO PRN ×2 (09:39→12:26)
--- NOTE | 2018-08-20 10:39 | PDOC ---
Infectious Disease Note Subjective Subjective Better Saleh out and urinating ok Flexeral has helped No F/C/S/n/V/D/SOA/Rash ROS ROS o/w neg Vital Sign Vital Signs Vital Signs Date Time Temp Pulse Resp B/P (MAP) Pulse Ox O2 Delivery O2 Flow Rate FiO2 08/20/18 09:39 Room Air 08/20/18 07:00 98.3 78 18 125/60 (81) 97 98.3 Physical Exam PHYSICAL EXAM CONSTITUTIONAL: She is a very pleasant lady, cooperative. She is in no acute distress. She is sitting upright in bed. HEENT: Pupils are equal and reactive. She has normal conjunctivae. Oral cavity: Pharynx is clear. NECK: Supple. Good range of motion. LUNGS: Clear to auscultation bilaterally. HEART: S1, S2. ABDOMEN: Soft, decreased bowel sounds, but present. : saleh out EXTREMITIES: No clubbing, cyanosis. Her left lower extremity is heavily bandaged. SKIN: Warm to touch without signs of rash. NEUROLOGIC: She is nonfocal. PSYCHIATRIC: Affect is pleasant. IV: RUE - PICC clean Labs Lab Laboratory Tests Test 08/20/18 01:30 Vancomycin Level Trough 16.2 mcg/mL (10.0-20.0) Vancomycin Last Dose Date 0404 Vancomycin Last Dose Time 1400 Micro Microbiology 08/17/18 Anaerobic/Aerobic Culture, Resulted Pending 08/17/18 Anaerobic Culture Result 1 (SULEMA), Resulted Pending 08/17/18 Aerobic Culture, Resulted Pending 08/17/18 Aerobic Culture Result 1 (SULEMA), Resulted Pending 08/17/18 Gram Stain - Final, Resulted 08/17/18 Gram Stain Result 1 (SULEMA) - Final, Resulted 08/17/18 Gram Stain Result 2 (SULEMA) - Final, Resulted Objective Assessment H/O ORIF LLE fracture 05/11/16 ? Infected Tibial nail s/p removal 08/17. Previous screws removed 06/22/2018 cults so far neg Leukocytosis - s/p Dexamethasone 08/17 Urinary retention s/p saleh Constipation Plan Plan of Care Discont Vanc and zosyn Dapto and Invanz reviewed potential side effects Q mon CBC/CMP/CPK/sed rate F/u ID office in 10 to 14 days D/w Dr. Romero this am re need for IV abx or not D/w D/w nursing OLAF TORREZ MD Aug 20, 2018 10:39
[2018-08-20] MEDS ORDERED: LIDOCAINE WITH 8.4% SOD BICARB 3 ML DISP.SYRIN. IJ ONE (10:45)
[2018-08-20 11:00] VITALS: BP 160/63
[2018-08-20] MEDS ORDERED: ERTAPENEM 1GM IVPB (GENERIC) 50 ML IV ONE (11:00)
[2018-08-20] MEDS: MORPHINE SULFATE 4 MG/ML VIAL. IV PRN (11:05)
[2018-08-20] MEDS ORDERED: DAPTOmycin (GENERIC) IVPB 500 MG in IV NORMAL SALINE 50ML 50 ML IV SCH (12:00)
--- NOTE | 2018-08-20 12:47 | NUR ---
SW following up with pt dc plan. Pt's Medicare insurance does not provide coverage for IV antibiotics. Pt will have to come to [facility] for outpatient IV antibiotics. MARY phoned and faxed referral to the outpatient department, phone: [phone]. fax: [phone]. MARY will await acceptance decision and proceed accordingly.
--- NOTE | 2018-08-20 12:51 | RAD ---
Exam: Fluoroscopic and ultrasound guided right percutaneous inserted central venous catheter placement 08/20/2018 12:47 PM .Indication: Long-term IV Antibiotics Technique: Informed oral and written consent were obtained. The right upper extremity was prepped and draped using sterile barrier technique. All elements of maximal sterile barrier technique including the use of a cap, mask, sterile gown, sterile gloves, large sterile sheet, appropriate hand hygiene, and 2% chlorhexidine for cutaneous antisepsis (or acceptable alternative antiseptic per current guidelines) were followed for this procedure.. Real-time ultrasound demonstrated a patent right basilic vein. The right upper extremity was prepped and draped in usual sterile fashion. 1% lidocaine used for local anesthesia. Using real-time ultrasound guidance the access needle percutaneously punctured the selected vein. Reference ultrasound images were saved to the medical record. A guidewire was advanced through the needle to the cavoatrial junction, and a peel-away sheath placed. The catheter was cut to length and inserted through the peel-away sheath such that its tip is at the cavoatrial junction. The wire and sheath were removed, and the catheter secured in place, and a sterile dressing was applied. Catheter was found to flush and aspirate normally. No immediate complications are identified. FLUORO TIME: 0.3 MIN Dose area product: 1 Gycm2 Impression: Ultrasound and fluoroscopically guided placement of a right upper extremity PICC line.
--- NOTE | 2018-08-20 13:16 | PDOC1 ---
History and Physical Date of Admission Date of Admission DATE: 08/20/18 TIME: 13:13 Identification/Chief Complaint Chief Complaint left leg bleeding and pain Source Source: Chart review, Patient History of Present Illness History of Present Illness 67 year old who had L tibia IM nail removed. Bleeding and pain in PACU, so was admitted. Past Surgical History Past Surgical History: Other (cervical spine surgery. Left tibial nail) Family History Family History: No Significant Social History ALCOHOL: heavy Drugs: Marijuana Current Medications Current Medications Current Medications Ondansetron HCl (Zofran) 4 mg PRN Q6HRS PRN IV NAUSEA/VOMITING; Start 08/17/18 at 07:00; Stop 08/17/18 at 17:46; Status DC Fentanyl Citrate (Fentanyl 2ml Vial) 25 mcg PRN Q5MIN PRN IV MILD PAIN; Start 08/17/18 at 07:00; Stop 08/17/18 at 17:46; Status DC Fentanyl Citrate (Fentanyl 2ml Vial) 50 mcg PRN Q5MIN PRN IV MODERATE TO SEVERE PAIN Last administered on 08/17/18at 11:30; Start 08/17/18 at 07:00; Stop at 17:46; Status DC Morphine Sulfate (Morphine Sulfate) 1 mg PRN Q10MIN PRN IV SEVERE PAIN Last administered on 08/17/18at 13:59; Start 08/17/18 at 07:00; Stop 08/17/18 at 17:46; Status DC Ringer's Solution 1,000 ml @ 30 mls/hr Q24H IV Last administered on 08/17/18at 08:11; Start 08/17/18 at 07:00; Stop 08/17/18 at 17:46; Status DC Lidocaine HCl (Xylocaine-Mpf 1% 2ml Vial) 2 ml PRN 1X PRN ID PRIOR TO IV START ; Start 08/17/18 at 07:00; Stop 08/17/18 at 17:46; Status DC Hydromorphone HCl (Dilaudid) 0.5 mg PRN Q10MIN PRN IV SEV PAIN, Second choice Last administered on 08/17/18at 13:04; Start 08/17/18 at 07:00; Stop 08/17/18 at 17: 46; Status DC Prochlorperazine Edisylate (Compazine) 5 mg PACU PRN PRN IV NAUSEA, MRX1 Last administered on 08/17/18at 11:04; Start 08/17/18 at 07:00; Stop 08/17/18 at 17:46; Status DC Propofol 20 ml @ As Directed STK-MED ONCE IV ; Start 08/17/18 at 08:49; Stop 08/17 at 17:46; Status DC Lidocaine HCl (Lidocaine Pf 2% Vial) 5 ml STK-MED ONCE .ROUTE ; Start 08/17/18 at 08:49; Stop 08/17/18 at 08:50; Status DC Ondansetron HCl (Zofran) 4 mg STK-MED ONCE .ROUTE ; Start 08/17/18 at 08:49; Stop 08/17/18 at 08:50; Status DC Dexamethasone Sodium Phosphate (Decadron) 20 mg STK-MED ONCE .ROUTE ; Start 08/17 at 08:49; Stop 08/17/18 at 08:50; Status DC Midazolam HCl (Versed) 2 mg STK-MED ONCE .ROUTE ; Start 08/17/18 at 08:50; Stop 08/17/18 at 08:51; Status DC Fentanyl Citrate (Fentanyl 2ml Vial) 100 mcg STK-MED ONCE .ROUTE ; Start at 08:51; Stop 08/17/18 at 17:46; Status DC Ephedrine Sulfate (ePHEDrine PF IN SALINE SYRINGE) 50 mg STK-MED ONCE IV ; Start 08/17/18 at 09:42; Stop 08/17/18 at 09:43; Status DC Sevoflurane (Ultane) 30 ml STK-MED ONCE IH ; Start 08/17/18 at 10:05; Stop at 10:06; Status DC Fentanyl Citrate (Fentanyl 2ml Vial) 100 mcg STK-MED ONCE .ROUTE ; Start at 10:53; Stop 08/17/18 at 10:54; Status DC Acetaminophen/ Hydrocodone Bitart (Lortab 7.5/325) 1 tab 1X ONCE PO ; Start 08/17/18 at 11:15; Stop 08/17/18 at 11:18; Status DC Hydromorphone HCl (Dilaudid) 2 mg STK-MED ONCE .ROUTE ; Start 08/17/18 at 11:43; Stop 08/17/18 at 11:44; Status DC Morphine Sulfate (Morphine Sulfate) 2 mg STK-MED ONCE .ROUTE ; Start 08/17/18 at 11:43; Stop 08/17/18 at 11:44; Status DC Cefazolin Sodium/ Dextrose 50 ml @ 100 mls/hr 1X ONCE IV ; Start 08/17/18 at 10 :00; Stop 08/17/18 at 13:19; Status DC Oxycodone HCl (Roxicodone) 5 mg PRN Q3HRS PRN PO PAIN MILD TO MODERATE Last administered on 08/20/18at 12:26; Start 08/17/18 at 14:00 Morphine Sulfate (Morphine Sulfate) 2 mg PRN Q1HR PRN IV PAIN MILD TO MODERATE ; Start 08/17/18 at 14:00 Fentanyl Citrate (Fentanyl 2ml Vial) 25 mcg PRN Q1HR PRN IV PAIN SEVERE; Start 08/17/18 at 14:00 Senna/Docusate Sodium (Senna Plus) 1 tab DAILY PO Last administered on at 08:45; Start 08/17/18 at 15:00 Polyethylene Glycol (miraLAX PACKET) 17 gm PRN DAILY PRN PO CONSTIPATION; Start 08/17/18 at 14:00 Ondansetron HCl (Zofran) 4 mg PRN Q4HRS PRN IV NAUSEA/VOMITING; Start 08/17/18 at 14:00 Magnesium Hydroxide (Milk Of Magnesia) 2,400 mg 1X PRN PRN PO CONSTIPATION; Start 08/18/18 at 06:00; Stop 08/19/18 at 05:59; Status DC Bisacodyl (Dulcolax Supp) 10 mg 1X PRN PRN MO CONSTIPATION; Start 08/18/18 at 16 :00; Stop 08/19/18 at 15:59; Status DC Acetaminophen/ Hydrocodone Bitart (Lortab 7.5/325) 1 tab PRN Q4HRS PRN PO PAIN MODERATE Last administered on 08/19/18at 02:12; Start 08/17/18 at 14:00 Morphine Sulfate (Morphine Sulfate) 4 mg PRN Q2HR PRN IV PAIN MODERATE Last administered on 08/20/18at 11:05; Start 08/17/18 at 14:00 Acetaminophen/ Hydrocodone Bitart (Lortab 7.5/325) 2 tab PRN Q4HRS PRN PO PAIN SEVERE, SEE COMMENTS Last administered on 08/19/18 14:45; Start 08/17/18 at 14:00 Dextrose (Dextrose 50%-Water Syringe) 12.5 gm PRN Q15MIN PRN IV SEE COMMENTS; Start 08/17/18 at 14:00 Cefazolin Sodium 1 gm/Dextrose 50 ml @ 100 mls/hr Q6H IV Last administered on 08/18/18at 02:15; Start 08/17/18 at 14:00; Stop 08/18/18 at 02:29; Status DC Piperacillin Sod/ Tazobactam Sod 3.375 gm/Sodium Chloride 50 ml @ 100 mls/hr Q6HRS IV Last administered on 08/20/18 05:41; Start 08/18/18 at 07:45; Stop 08/20 at 10:39; Status DC Vancomycin HCl (Vanco Per Pharmacy) 1 each PRN DAILY PRN MC SEE COMMENTS Last administered on 08/20/18at 03:33; Start 08/18/18 at 13:00; Stop 08/20/18 at 10:39; Status DC Vancomycin HCl 1.75 gm/Sodium Chloride 500 ml @ 250 mls/hr 1X ONCE IV Last administered on 08/18/18 14:14; Start 08/18/18 at 14:00; Stop 08/18/18 at 15:59; Status DC Lactobacillus Rhamnosus (Culturelle) 1 cap BID PO Last administered on at 08:45; Start 08/18/18 at 21:00 Vancomycin HCl 1 gm/Sodium Chloride 250 ml @ 250 mls/hr Q12H IV Last administered on 08/20/18at 02:37; Start 08/19/18 at 02:00; Stop 08/20/18 at 10:39; Status DC Vancomycin HCl (Vancomycin Trough Level) 1 each 1X ONCE MC Last administered on 08/20/18at 01:30; Start 08/20/18 at 01:30; Stop 08/20/18 at 01:31; Status DC Zolpidem Tartrate (Ambien) 5 mg PRN QHS PRN PO INSOMNIA Last administered on 20:56; Start 08/18/18 at 20:45; Stop 08/19/18 at 12:58; Status DC Zolpidem Tartrate (Ambien) 10 mg PRN QHS PRN PO INSOMNIA Last administered on at 21:22; Start 08/19/18 at 13:00 Cyclobenzaprine HCl (Flexeril) 10 mg PRN TID PRN PO MUSCLE SPASMS Last administered on 08/20/18at 08:45; Start 08/19/18 at 13:00 Diphenhydramine HCl (Benadryl) 50 mg PRN Q6HRS PRN PO INSOMNIA; Start 08/19/18 at 13:00 Ketorolac Tromethamine (Toradol 30mg Vial) 30 mg PRN Q6HRS PRN IV PAIN Last administered on 08/20/18at 08:45; Start 08/19/18 at 13:00; Stop 08/24/18 at 12:59 Lidocaine/Sodium Bicarbonate (Buffered Lidocaine 1%) 3 ml STK-MED ONCE .ROUTE ; Start 08/20/18 at 09:28; Stop 08/20/18 at 09:29; Status DC Lidocaine/Sodium Bicarbonate (Buffered Lidocaine 1%) 3 ml 1X ONCE IJ Last administered on 08/20/18at 10:43; Start 08/20/18 at 10:45; Stop 08/20/18 at 10:46; Status DC Ertapenem 50 ml @ 100 mls/hr 1X ONCE IV Last administered on 08/20/18at 11:21; Start 08/20/18 at 11:00; Stop 08/20/18 at 11:29; Status DC Daptomycin 500 mg/ Sodium Chloride 50 ml @ 100 mls/hr Q24H IV Last administered on 08/20/18at 12:22; Start 08/20/18 at 12:00 Active Scripts Active Vaughan 7.5-325 Tablet (Acetaminophen/Hydrocodone Bitart) 1 Each Tablet 1 Tab PO PRN Q4HRS PRN Reported Cyclobenzaprine Hcl 10 Mg Tablet 1 Tab PO BID Neurontin (Gabapentin) 600 Mg Tablet 600 Mg PO TID Allergies Allergies: Coded Allergies: No Known Drug Allergies (Unverified , 08/17/18) Physical Exam General: Alert, Cooperative HEENT: Atraumatic Lungs: Normal air movement (document) Abdomen: Soft Extremities: Other (the dressing on the left leg has profuse bleeding from the distal incisions. She reports pain. There is no evidence of compartment syndrome on examination) Skin: Other (surgical incisions, bleeding from the distal incisions) Neuro: Sensation intact Psych/Mental Status: Mental status NL Vitals Vitals Vital Signs Date Time Temp Pulse Resp B/P (MAP) Pulse Ox O2 Delivery O2 Flow Rate FiO2 08/20/18 12:26 Room Air 08/20/18 11:00 97.8 81 18 160/63 (95) 97 97.8 08/18/18 01:37 10.0 Labs Labs Laboratory Tests Test 08/19/18 04:55 08/20/18 01:30 Sodium Level 141 mmol/L (136-145) Potassium Level 3.8 mmol/L (3.5-5.1) Chloride Level 103 mmol/L (98-107) Carbon Dioxide Level 29 mmol/L (21-32) Anion Gap 9 (6-14) Blood Urea Nitrogen 12 mg/dL (7-20) Creatinine 0.8 mg/dL (0.6-1.0) Estimated GFR (Cockcroft-Gault) 72.0 Glucose Level 97 mg/dL (70-99) Calcium Level 8.7 mg/dL (8.5-10.1) Vancomycin Level Trough 16.2 mcg/mL (10.0-20.0) Vancomycin Last Dose Date 0404 Vancomycin Last Dose Time 1400 Laboratory Tests Test 08/20/18 01:30 Vancomycin Level Trough 16.2 mcg/mL (10.0-20.0) Vancomycin Last Dose Date 0404 Vancomycin Last Dose Time 1400 Images Images The PACU images showed no new fracture VTE Prophylaxis Ordered VTE Prophylaxis Devices: Yes VTE Pharmacological Prophylaxi: Yes Assessment/Plan Assessment/Plan She was admitted for pain control and to follow the bleeding. FARSHAD RODRIGEZ MD Aug 20, 2018 13:16
--- NOTE | 2018-08-20 13:30 | NUR ---
Pt discharged home with outpatient IV ABT infusions. D/Cd by wheelchair to hospital entrance, accompanied by spouse. ASIF FITZGERALD PICC inserted this morning by IR left in place, good blood draw, dressing CDI. First dose of each prescribed ABT administered to Pt prior to discharge, no reactions noted or reported by Pt. Dressing to L leg CDI, Pt instructed not to remove it. Prescriptions and f/u appt information provided to Pt and spouse along with discharge instructions and education regarding Dx. Pt and spouse verbalized understanding and had no further questions. No other changes from previous assessment.
--- NOTE | 2018-08-20 14:33 | NUR ---
MARY following up with pt dc plan. Pt has been accepted by [facility] outpatient for IV antibiotics. Pt's first appointment will be at 0800 on 08/21/2018. MARY met with pt and pt's Cruz to explain the process. MARY informed pt she will need to go to the Emergency Department at 0800 tomorrow to begin registration and start IV antibiotics. MARY provided pt with written instructions and phone number for outpatient. Pt confirmed plan and verbalized understanding. Pt's RN has been notified.
--- NOTE | 2018-09-14 04:09 | DS ---
DATE OF DISCHARGE: 08/20/2018 PRINCIPAL DIAGNOSES: 1. Suspected hardware infection with drainage from the tibial nail. 2. Status post tibial nail removal with severe pain, muscle spasm and infection concern. DISPOSITION: Home. DISCHARGE INSTRUCTIONS: Maintained operative dressings clean and dry. Weightbearing as tolerated. Continue intravenous antibiotics per Infectious Disease. DISPOSITION MEDICATIONS: Include daptomycin and Invanz per Infectious Disease. DISCHARGE FOLLOWUP: With Dr. Romero in approximately 1 week and Infectious Disease 10-14 days. BRIEF DESCRIPTION OF HOSPITAL COURSE: The patient underwent removal of a tibial nail for continued drainage from her distal locking screws when she had removal of symptomatic hardware previously. Based on her ongoing drainage and infection concern, intraoperative cultures and extensive irrigation and debridement of the tibial canal was obtained. She had severe pain afterward and severe muscle spasm. Pain was eventually better controlled, particularly with supplementation of Toradol and a muscle relaxant. She was then able to get around and actually move the extremity somewhat otherwise before that was extremely painful. Cultures remained pending but were negative at the time of discharge, prompting her continuing ongoing antibiotic prophylactic coverage and she was discharged when symptoms otherwise controlled and making progress in terms of her being medically stable after the hardware removal. She is discharged in stable condition. RENETTA ROMERO MD DR: DEYSI/christofer JOB#: [id number] / [id number]
== END 2018-08-20 15:30 | disposition home or self-care (01) | DRG 497 ==
LOC: SURG 07:19 → 4 NORTH 14:02 → OBSVTOIN 14:02
PROVIDERS: ADMIT Orthopaedic Surgery; ATTEND Orthopaedic Surgery
PROC: 0QDH0ZZ Extraction of Left Tibia, Open Approach (ICD-10-PCS; 2018-08-17)
PROC: 0QPH04Z Removal of Internal Fixation Device from Left Tibia, Open Approach (ICD-10-PCS; principal; 2018-08-17 09:30)
PROC: 02HV33Z Insertion of Infusion Device into Superior Vena Cava, Percutaneous Approach (ICD-10-PCS; 2018-08-20)
PROC: B548ZZA Ultrasonography of Superior Vena Cava, Guidance (ICD-10-PCS; 2018-08-20)
DX: T84.7XXA Infection and inflammatory reaction due to other internal orthopedic prosthetic devices, implants and grafts, initial encounter (principal); D72.829 Elevated white blood cell count, unspecified; Z87.891 Personal history of nicotine dependence; F12.90 Cannabis use, unspecified, uncomplicated; K59.00 Constipation, unspecified; G89.29 Other chronic pain; Y83.8 Other surgical procedures as the cause of abnormal reaction of the patient, or of later complication, without mention of misadventure at the time of the procedure; Y92.89 Other specified places as the place of occurrence of the external cause
CPT/HCPCS: 36415; 36569; 73590; 76000; 76937; 77001; 80048; 80053; 80202; 85025; 85651; 87071; 87075; 99406; C1751; C1892; J0171; J0690; J0696; J0780; J0878; J1100; J1170; J1335; J1885; J2001; J2250; J2270; J2405; J2543; J2704; J3010; J3370; J7040; J7050; 97110; 97530; J7030

== ENCOUNTER → 2018-10-27 | Outpatient (CLI) | payer MEDICARE ==
[2018-09-15 11:04] VITALS: BP 125/65
[~2018-10-27] MED LIST changes: +GADOTERATE 7.5 MMOL/15ML VIAL. IVP ONE; +HYDR-3165 PO; -IV RINGERS,LACTATED 1000ML 1,000 ML IV SCH; -LIDOCAINE 1% PF 2 ML VIAL. ID PRN; -ONDANSETRON PF 4 MG/2 ML VIAL. IV PRN; -PROCHLORPERAZINE 10 MG/2 ML VIAL. IV PRN; -fentaNYL PF VIAL 100 MCG/2 ML VIAL IV PRN
--- NOTE | 2018-10-27 11:41 | KCIC ---
MR of the left tibia and fibula without contrast HISTORY: Hardware removal June and August 2018. Drainage from wound at the distal tibia fibula medially. TECHNIQUE: Routine pre and postcontrast images are obtained. FINDINGS: Long tibial condyle tract and proximal and distal cross locking screw tracks are identified. Fluid signal within the most distal medial screw tract. This fluid signal extends through the screw tract into the soft tissues and communicates with a soft tissue fluid collection which measures 14 x 7 x 18 mm. Enhancement of the wall of this screw tract which is continuous with enhancing wall of the deep aspect of this fluid collection. The fluid signal within this screw track extends into the medullary canal where it blends with the T2 signal identified within the screw tract itself. Milder fluid signal within the medial screw tract just proximal to this one, and which extends in the soft tissues immediately superior to this soft tissue fluid collection. Note that the other screw tracts of the tibia demonstrate peripheral wall enhancement as well, but do not demonstrate fluid signal identified on the T2-weighted images. There is no evidence of aggressive bone destruction or loss of fatty marrow T1 signal around the tibial tunnel screw tracks to suggest overt osteomyelitis. There is no significant soft tissue edema or enhancement to suggest active cellulitis. IMPRESSION: 1. Fluid signal within the most distal medial screw tract which communicates with a small external soft tissue fluid collection, as well as communicates with the tibial canal. This fluid could be sterile or infected, cannot distinguish by MRI. 2. There is no evidence of aggressive destruction or signal replacement within the adjacent bone, around the tibial tunnel or screw tracks, to suggest acute osteomyelitis. Electronically signed by: Wayne Branch MD (10/27/2018 11:38 AM) [facility]
== END | disposition home or self-care (01) ==
LOC: KCIC MRI 08:20
PROVIDERS: ATTEND Orthopaedic Surgery
DX: Z98.890 Other specified postprocedural states (principal)
CPT/HCPCS: 73720; A9575